=== PATIENT | female | born 1975 | race Caucasian/White ===

== ENCOUNTER 2016-11-21 19:09 | Inpatient (IN) | payer BC ==
[2016-11-21] MEDS ORDERED: SODIUM CHLORIDE 0.9% 1,000 ML IV ONE (19:51)
[2016-11-21] MEDS ORDERED: HYDROmorphone 1 MG/ML 1 ML SYRINGE IVP STA ×2 (19:51→20:27)
[2016-11-21] MEDS ORDERED: ONDANSETRON 4 MG/2 ML VIAL IVP STA ×2 (19:51→21:29)
--- NOTE | 2016-11-21 20:03 | ED ---
Fall HPI - General Source: patient Mode of arrival: wheelchair <Bryan He - Last Filed: 11/21/16 21:43> <Kris Kang - Last Filed: 11/22/16 01:06> - General Chief Complaint: Fall Stated Complaint: fell off a horse Time Seen by Provider: 11/21/16 19:46 - History of Present Illness Initial Comments: This 41-year-old white female presents with a complaint of falling from a horse. She states that the horse was standing still and she was reading a book. The wind caught pages of the book and they flapped and this spook spooked the horse.she apparently landed on a hard piece of wendy on her upper back or neck region. She states that she immediately developed some numbness and burning type pain to her bilateral upper extremities. She may have hit her head as well. She did not lose any consciousness. She states that the pain in her arms is severe in nature and worse with any movement or light touch. This occurred at 6 PM tonight. She denies any other injuries or complaints or modifying factors. She denies any previous medical problems other than ADHD and only takes Adderall. She denies any alcohol or drugs. (Bryan He) - Related Data Home Medications Medication Instructions Recorded Confirmed Dextroamphetamine/Amphetamine 20 mg PO QAM 11/21/16 11/21/16 [Adderall Xr] Ergocalciferol [Vitamin D2] 50,000 unit PO Q30D 11/21/16 11/21/16 L.acidoph,Paracasei, B.lactis 2 cap PO HS 11/21/16 11/21/16 [Probiotic] Multivitamins, Thera [Multivitamin 1 tab PO DAILY 11/21/16 11/21/16 (formulary)] Allergies Allergy/AdvReac Type Severity Reaction Status Date / Time No Known Allergies Allergy Verified 11/21/16 21:02 Review of Systems ROS Other: All systems not noted in ROS Statement are negative. <Bryan He - Last Filed: 11/21/16 21:43> ROS Other: All systems not noted in ROS Statement are negative. <Kris Kang - Last Filed: 11/22/16 01:06> ROS Statement: Those systems with pertinent positive or pertinent negative responses have been documented in the HPI. Past Medical History Past Medical History: No Reported History History of Any Multi-Drug Resistant Organisms: None Reported Past Surgical History: No Surgical Hx Reported Past Psychological History: ADD/ADHD Smoking Status: Never smoker Past Alcohol Use History: None Reported Past Drug Use History: None Reported <Bryan He - Last Filed: 11/21/16 21:43> General Exam Limitations: no limitations <Bryan He - Last Filed: 11/21/16 21:43> <Kris Kang - Last Filed: 11/22/16 01:06> - General Exam Comments Initial Comments: GENERAL: The patient is well nourished and well hydrated. VITAL SIGNS: Heart rate, blood pressure, respiratory rate reviewed as recorded in nurse's notes. EYES: Pupils are round and reactive. Extraocular movements are intact. No conjunctival / lid redness or swelling. ENT: No external evidence of injury, swelling, or ecchymosis. Airway is patent. Throat is clear. NECK: there is mild tenderness diffusely throughout the cervical spine. No subcutaneous emphysema. Trachea is midline. No thyroid mass. HEART: Regular rate and rhythm. Good peripheral pulses. LUNGS/CHEST: Breath sounds clear and equal bilaterally. No rales, rhonchi, or wheezes. No ecchymosis, subcutaneous emphysema, or tenderness. ABDOMEN: Abdomen soft without tenderness. No palpable masses or organomegaly. No peritoneal signs. No abdominal wall swelling or ecchymosis. EXTREMITIES: There is extreme tenderness upon any palpation or light touch to bilateral upper extremities. There is no tenderness to the lower extremities. Muscle tone and function is difficult to assess to the upper extremities due to the degree of pain she is in. She is unwilling to let me touch her arms or move her arms. there is tenderness noted to the bilateral parathoracic musculature and slightly over the upper vertebral spinal processes. NEUROLOGIC: Sensation is grossly intact. Cranial nerve exam reveals face is symmetrical, tongue is midline, speech is clear. SKIN: No abrasions or ecchymosis is noted. No induration or masses noted. PSYCHIATRIC: Alert and oriented. appears to be extremely anxious. (Bryan He) Medical Decision Making - Lab Data Result diagrams: 11/21/16 20:55 11/21/16 20:55 <Bryan He - Last Filed: 11/21/16 21:43> - Lab Data Result diagrams: 11/21/16 20:55 11/21/16 20:55 <Kris Kang - Last Filed: 11/22/16 01:06> - Medical Decision Making the patient is seen and examined. All diagnostics are reviewed. An IV is started and she receives Dilaudid and Zofran intravenously.She has continued pain and receives another milligram of Dilaudid IV. She has increased nausea and receives additional Zofran. A computed tomography scan of the brain and an cervical spine is done does not show any acute process. Computed tomography scan of the thoracic spine shows a compression fracture of T11 but is felt to be old per radiology. The patient does not have any tenderness in that area but also denies any previously known old back injuries. (Bryan He) - Lab Data Lab Results 11/21/16 11/21/16 11/21/16 Range/Units 20:55 20:55 20:55 WBC 10.0 (3.8-10.6) k/uL RBC 4.53 (3.80-5.40) m/uL Hgb 14.2 (11.4-16.0) gm/dL Hct 41.0 (34.0-46.0) % MCV 90.4 (80.0-100.0) fL MCH 31.4 (25.0-35.0) pg MCHC 34.7 (31.0-37.0) g/dL RDW 12.3 (11.5-15.5) % Plt Count 284 (150-450) k/uL Neutrophils % 74 % Lymphocytes % 17 % Monocytes % 5 % Eosinophils % 1 % Basophils % 1 % Neutrophils # 7.4 (1.3-7.7) k/uL Lymphocytes # 1.7 (1.0-4.8) k/uL Monocytes # 0.5 (0-1.0) k/uL Eosinophils # 0.1 (0-0.7) k/uL Basophils # 0.1 (0-0.2) k/uL PT 10.4 (9.0-12.0) sec INR 1.0 (<1.1) APTT 23.3 (22.0-30.0) sec Sodium 135 L (137-145) mmol/L Potassium 4.0 (3.5-5.1) mmol/L Chloride 108 H (98-107) mmol/L Carbon Dioxide 20 L (22-30) mmol/L Anion Gap 7 mmol/L BUN 13 (7-17) mg/dL Creatinine 0.68 (0.52-1.04) mg/dL Est GFR (MDRD) Af Amer >60 (>60 ml/min/1.73 sqM) Est GFR (MDRD) Non-Af >60 (>60 ml/min/1.73 sqM) Glucose 125 H (74-99) mg/dL Calcium 9.3 (8.4-10.2) mg/dL Disposition <Bryan He - Last Filed: 11/21/16 21:43> <Kris Kang - Last Filed: 11/22/16 01:06> Clinical Impression: Fall, Cervical radicular pain Disposition: ADMITTED IP TO THIS HOSP Condition: Fair Instructions: Thoracic Back Strain (ED), Cervical Radiculopathy (ED) Referrals: Brenna Silva MD [Primary Care Provider] - 1-2 days
[2016-11-21] MEDS ORDERED: hydrALAZINE HCL 20 MG/ML 1 ML VIAL IVP STA (20:27)
--- NOTE | 2016-11-21 21:03 | CT ---
EXAMINATION TYPE: CT brain odessa wo con DATE OF EXAM: 11/21/2016 COMPARISON: NONE HISTORY: Fall from horse today. Neck pain and bilateral arm tingling and pain. CT DLP: 3462.00 mGycm Automated exposure control for dose reduction was used. TECHNIQUE: CT scan of the head and cervical spine are performed without contrast. FINDINGS: The ventricles and sulci appear normal. There is no mass effect nor midline shift. There is no sign of intracranial hemorrhage. The calvarium appears intact. The cervical vertebra have normal alignment. There is mild spondylosis in the mid cervical spine. Fac et joints are intact. The skull base is intact. There is no sign of a fracture. IMPRESSION: Negative CT scan of the brain. Mild degenerative disc changes in the cervical spine. No fracture.
[2016-11-21 21:08] LABS: Basophils # (A) 0.1 k/uL (0-0.2); Basophils % (A) 1 %; CH 31.6; CHCM 35.1; Eosinophils # (A) 0.1 k/uL (0-0.7); Eosinophils % (A) 1 %; HDW 2.36; HGB 14.2 gm/dL (11.4-16.0); Luc # (Auto) 0.32; Luc % (Auto) 3; Lymphocytes # (A) 1.7 k/uL (1.0-4.8); Lymphocytes % (A) 17 %; MCH 31.4 pg (25.0-35.0); MCHC 34.7 g/dL (31.0-37.0); MCV 90.4 fL (80.0-100.0); Mean Platelet Volume 7.1; Monocytes # (A) 0.5 k/uL (0-1.0); Monocytes % (A) 5 %; Neutrophils # (A) 7.4 k/uL (1.3-7.7); Neutrophils % (A) 74 %; RBC 4.53 m/uL (3.80-5.40); RDW 12.3 % (11.5-15.5); WBC (Perox) 10.46
[2016-11-21 21:15] LABS: Anion Gap 7 mmol/L; Blood Urea Nitrogen 13 mg/dL (7-17); Calcium 9.3 mg/dL (8.4-10.2); Carbon Dioxide 20 mmol/L (22-30); Chloride 108 mmol/L (98-107); Glucose 125 mg/dL (74-99); Non-African American GFR(MDRD) >60 (>60 ml/min/1.73 sqM); Sodium 135 mmol/L (137-145)
--- NOTE | 2016-11-21 21:16 | CT ---
EXAMINATION TYPE: CT thoracic spine wo con DATE OF EXAM: 11/21/2016 COMPARISON: NONE HISTORY: Fall from horse today. Neck pain and bilateral arm tingling and pain. CT DLP: 3462.00 mGycm Automated exposure control for dose reduction was used. FINDINGS: The thoracic vertebra have fairly normal spacing and alignment. There is slight anterior wedging of T 11 that is probably old and is less than 10%. There is no thoracic paraspinal mass. The posterior sherley ments are intact. I see no focal bone destruction. IMPRESSION: THERE IS VERY MINIMAL WEDGING OF T11 VERTEBRA THAT IS PROBABLY DUE TO OLD INJURY. NO ACUTE FRACTURE S EEN. MILD SPONDYLOTIC CHANGES.
[2016-11-21 21:25] LABS: Partial Thromboplastin Time 23.3 sec (22.0-30.0); Prothrombin Time 10.4 sec (9.0-12.0)
--- NOTE | 2016-11-21 21:53 | XR ---
EXAMINATION TYPE: XR chest 2V DATE OF EXAM: 11/21/2016 COMPARISON: NONE HISTORY: Fell off a horse. Chest pain. TECHNIQUE: Frontal and lateral views of the chest are obtained. FINDINGS: Heart and mediastinum appear normal. Lungs are clear. There is no sign of pleural effusion or pneumothorax. Bony thorax appears intact. There is no sign of a rib fracture. IMPRESSION: Normal chest
--- NOTE | 2016-11-21 21:54 | XR ---
EXAMINATION TYPE: XR pelvis AP view DATE OF EXAM: 11/21/2016 COMPARISON: NONE HISTORY: Pain. Fell off a horse. TECHNIQUE: Single view FINDINGS: Pelvic ring appears intact. Proximal femurs and hip joints appear normal. IUD is noted. Sac roiliac joints are normal. IMPRESSION: Normal pelvis
[2016-11-22] MEDS ORDERED: HYDROmorphone 1 MG/ML 1 ML SYRINGE IVP STA
[2016-11-22] MEDS ORDERED: ACETAMINOPHEN TAB 325 MG TAB PO PRN (01:06)
[2016-11-22] MEDS ORDERED: NALOXONE 0.4 MG/ML 1 ML VIAL IV PRN (01:06)
[2016-11-22] MEDS ORDERED: HYDROmorphone 1 MG/ML 1 ML SYRINGE IV PRN (01:06)
[2016-11-22] MEDS: SODIUM CHLORIDE 0.9% 1,000 ML IV SCH (02:06)
[2016-11-22 02:13] VITALS: BMI 25.4
[2016-11-22 08:03] VITALS: RESP 16
[2016-11-22] MEDS ORDERED: ONDANSETRON 4 MG/2 ML VIAL IVP PRN (08:11)
[2016-11-22] MEDS ORDERED: DIAZEPAM 5 MG TAB PO STA ×3 (09:14→17:22)
[2016-11-22] MEDS ORDERED: DEXAMETHASONE SOD PHOSPHATE 10 MG/ML 1 ML VIAL IV STA (09:37)
[2016-11-22] MEDS ORDERED: DEXAMETHASONE SOD PHOSPHATE 4 MG/ML 1 ML VIAL IV PRN (09:37)
[2016-11-22] MEDS: FAMOTIDINE 20 MG TAB PO SCH ×2 (09:40→22:25)
[2016-11-22] MEDS ORDERED: methylPREDNISolone SOD SUCCI 125 MG/2 ML VIAL IV SCH ×2 (09:45→16:00)
[2016-11-22] MEDS: INSULIN LISPRO (humaLOG) 300 UNIT/3 ML VIAL SQ SCH ×3 (11:31→22:25)
[2016-11-22 11:37] LABS: Glucose,Whole Blood 153 mg/dL (75-99)
--- NOTE | 2016-11-22 12:57 | P.HPOR ---
History of Present Illness H&P Date: 11/22/16 Chief Complaint: Bilateral upper extremity pain; status post fall from horse Patient is a very pleasant 41-year-old female who is seen and examined at the bedside for further evaluation after being thrown from a horse yesterday, 2016. She states she was reading a book when the wind caught the pages and scared the horse at which time the horse knocked her off onto the ground. She denies loss of consciousness. Since the time of the accident, she's been experiencing significant bilateral upper extremity pain. She states she has pain that radiates from the shoulders all the way down to the hands. The pain is most significant below the elbows bilaterally. She denies any cervical pain , thoracic pain, low back pain, or lower extremity pain. She states she has had previous injury to her spine multiple times from other accidents. She's been urinating without difficulty. She has had significant nausea since being admitted to the hospital and has vomited a few times. She has not had much of an appetite. CT scans were performed in the emergency department of the cervical spine, brain, and thoracic spine. She's currently waiting for further evaluation by neurology. MRI scans of the cervical spine and thoracic spine have also been ordered. She denies specific weakness in the bilateral upper extremities but states she has significant exacerbated pain in the bilateral upper extremities throughout active range of motion. Past Medical History Past Medical History: No Reported History History of Any Multi-Drug Resistant Organisms: None Reported Past Surgical History: No Surgical Hx Reported Past Psychological History: ADD/ADHD Smoking Status: Former smoker Past Alcohol Use History: None Reported Past Drug Use History: None Reported - Past Family History Mother Family Medical History: No Reported History Father Additional Family Medical History / Comment(s): collitis Medications and Allergies Home Medications Medication Instructions Recorded Confirmed Type Dextroamphetamine/Amphetamine 20 mg PO QAM 11/21/16 11/21/16 History [Adderall Xr] Ergocalciferol [Vitamin D2] 50,000 unit PO Q30D 11/21/16 11/21/16 History L.acidoph,Paracasei, B.lactis 2 cap PO HS 11/21/16 11/21/16 History [Probiotic] Multivitamins, Thera [Multivitamin 1 tab PO DAILY 11/21/16 11/21/16 History (formulary)] Allergies Allergy/AdvReac Type Severity Reaction Status Date / Time No Known Allergies Allergy Verified 11/21/16 21:02 Physical Examination Physical exam: Patient is awake, alert, and oriented 3. Vital signs stable. Good chest excursion with deep inspiration and expiration. Abdomen soft, nontender. No significant pain with palpation of the posterior cervical spine or thoracic spine. Full, active, and adequate range of motion of the cervical spine Evidence of a small red ronald of the mid thoracic spine and right lateral thoracic spine that may be due to fall No evidence of significant bruising, laceration, or obvious blunt trauma to the cervical spine or thoracic spine No obvious sign of infection. Able to perform active range of motion of the bilateral upper extremities, but doing so causes significant upper extremity pain bilaterally. Negative Salazar's Sign bilaterally Neurovascularly intact bilateral upper extremities Active full range of motion of the bilateral lower extremities without difficulty Results Pertinent studies: CT scan of the brain and cervical spine: Negative CT scan of the brain; mild degenerative changes of the cervical spine without evidence of acute fracture CT of the thoracic spine: T11 superior endplate compression deformity of with less than 10% height loss that appears to be chronic in nature; mild spondylitic change X-ray of the pelvis: Normal pelvis; no evidence of fracture, dislocation - Labs Labs: Abnormal Lab Results - Last 24 Hours (Table) 11/21/16 11/22/16 Range/Units 20:55 11:25 Sodium 135 L (137-145) mmol/L Chloride 108 H (98-107) mmol/L Carbon Dioxide 20 L (22-30) mmol/L Glucose 125 H (74-99) mg/dL POC Glucose (mg/dL) 153 H (75-99) mg/dL H & H 11/21/16 Range/Units 20:55 Hgb 14.2 (11.4-16.0) gm/dL Hct 41.0 (34.0-46.0) % Coagulation 11/21/16 Range/Units 20:55 INR 1.0 (<1.1) Result Diagrams: 11/21/16 20:55 11/21/16 20:55 Assessment and Plan (1) Cervical radicular pain Status: Acute (2) Fall Status: Acute Plan: Assessment: Bilateral upper extremity cervical radiculopathy. Status post-fall from horse Plan: 1. Orders have been placed for an MRI of the cervical spine and MRI of the thoracic spine. Valium 5 mg will be given to the patient prior to her MRIs. We 'll plan to follow-up with an appropriate plan of care following the MRI results. We will also plan to start her on Solu-Medrol 60 mg IV every 8 hours. Continue pain control. We'll plan to increase Zofran to 4 mg every 6 hours as needed for nausea and vomiting. 2. Patient currently waiting for further evaluation by Dr. Sheth in neurology. 3. We will continue to follow patient closely. 4. Patient has been discussed in detail with Dr. Jac Avendano and he agrees with this plan Time with Patient: Less than 30
[2016-11-22] MEDS: ONDANSETRON 4 MG/2 ML VIAL IVP PRN ×2 (13:01→17:33)
[2016-11-22 13:33] LABS: Hemoglobin A1C 5.5 % (4.2-6.1)
--- NOTE | 2016-11-22 15:48 | MR ---
EXAMINATION TYPE: MR cspine/tspine wo con DATE OF EXAM: 11/22/2016 COMPARISON: CT cervical and thoracic spine from yesterday HISTORY: Fell off of a horse, Neck pain, dontrell arm pain and skin sensitivity, nausea TECHNIQUE: Multiplanar, multisequence imaging of the cervical and thoracic spine are performed withou t contrast FINDINGS: C-SPINE: FINDINGS: Sagittal images of the cervical spine show the craniocervical junction to appear within nor mal limits. The cervical and upper thoracic spinal cord is normal in course and caliber. There is sl ight levoconvex scoliotic curvature centered in the upper thoracic spine redemonstrated. The vertebr al body heights are normal. There is mild to moderate disc space narrowing C4-C5 level. Posterior d isc herniations are seen at C3-C4 and C4-C5 levels mildly effacing anterior thecal sac. Mild increase d signal in spinal cord is felt present at C4-C5 level on sagittal image 7 confirmed on axial image 3 3. The bone marrow signal intensity is within normal limits. Mild multilevel anterior spurring is pre sent. Axial images show the C2-C3 level to appear within normal limits. Axial images at C3-C4 level show broad-based right paracentral disc protrusion effacing anterior thec al sac and causing asymmetric mild right-sided neural foraminal narrowing. Left-sided neural foramen is patent. Axial images at C4-C5 level show broad-based posterior disc protrusion with some marginal spurring ca using moderate left greater than right neural foraminal narrowing. There is effacement of anterior th ecal sac with suggestion of faint increased signal in spinal cord. Axial images at C5-C6 level show broad-based right paracentral/foraminal disc protrusion effacing ant erolateral thecal sac and causing asymmetric moderate right-sided neural foraminal narrowing on axial image 27. Left-sided neural foramen is patent. Axial images at C6-C7 and C7-T1 levels are felt within normal limits. There is 6 mm T2 hyperintense nodule inferior left thyroid lobe on axial image 3 redemonstrated sligh tly more prominent in craniocaudal dimension seen better on CT. IMPRESSION: Multilevel degenerative changes in cervical spine most prominent at C3-C4 level, suggesti on of mild cord edema at this level is present, I suspect findings are most likely product of degener ative change rather than trauma given the associated degenerative findings. Other findings as noted a naren. T-SPINE: Spinal cord shows normal course and caliber as it courses the thoracic spine. Vertebral body heights and alignment are satisfactory. Disc space heights are fairly well-maintained. Posterior disc hernia tion effaces anterior thecal sac T11-T12 level on sagittal images 8 and 9. There is partial visualiza tion of disc herniation effacing anterior thecal sac at L1-L2 level on sagittal image 9. Bone marrow signal intensity is preserved. Mild multilevel anterior spurring is redemonstrated in the lower thora cic spine. Review of the axial images also shows right paracentral disc protrusion effacing anterolateral thecal sac and causing asymmetric mild right-sided neural foraminal narrowing on axial image 16 at T9-T10 l evel. Axial images at T10-T11 level show small left paracentral disc protrusion mildly effacing anterior th ecal sac on axial image 13, bilateral neural foramina are patent. Axial images at T11-T12 level confirmed left paracentral disc protrusion effacing anterolateral theca l sac and causing asymmetric mild to moderate left-sided neural foraminal narrowing on axial image 6. IMPRESSION: Some multilevel degenerative changes most prominent in lower thoracic levels as detailed above. No suspicious posttraumatic findings identified.
[2016-11-22 17:06] LABS: Glucose,Whole Blood 183 mg/dL (75-99)
[2016-11-22] MEDS: methylPREDNISolone SOD SUCCI 125 MG/2 ML VIAL IV SCH (17:31)
--- NOTE | 2016-11-22 19:07 | MR ---
EXAMINATION TYPE: MR brain wo/w con DATE OF EXAM: 11/22/2016 COMPARISON: NONE HISTORY: Fall off horse, vision changes, neck pain, cervical radic CONTRAST: Standard multiplanar, multisequence MRI departmental protocol utilizing 15 mL intravenous MultiHance gadolinium contrast. FINDINGS: Ventricles and sulci appear normal. There is no mass effect nor midline shift. There is no sign of intracranial hemorrhage. Rosas-white matter structures have normal signal pattern. There is no evidence of cerebral edema. Brainstem appears intact. Sella turcica is normal. Corpus callosum appea rs normal. Contrast images show no pathologic enhancement. IMPRESSION: Normal MRI scan of the brain. No evidence of traumatic injury.
[2016-11-22 21:28] LABS: Glucose,Whole Blood 162 mg/dL (75-99)
--- NOTE | 2016-11-22 22:23 | P.CNNES ---
History of Present Illness Consult date: 11/22/16 Requesting physician: Mercy Avendano Reason for Consult: cervical radiculopathy Chief complaint: Bilateral upper extremity pain History of Present Illness: Neurology is being requested to consult on a 41-year-old female who was brought to the ED on November 21, 2016 after being thrown from a horse. Patient denied any loss of consciousness. Patient states that when being thrown from the horse, she fell onto a large chunk of Siddharth or debris landing on her back. The debris caused hyperextension of the cervical spine and elevation of the thoracic spine with immediate loss of sensation to the bilateral upper and lower extremities. Bilateral lower extreme any sensation returned within several minutes. Bilateral upper extremity symptoms remained but diminished to the noted level on presentation. Patient's daughter was in proximity at the time of the fall and it does not appear that the patient lost consciousness. Patient does report she possibly struck her head on the ground. CT and MRI of the brain, cervical and thoracic spine were performed. Patient was placed on Decadron by Dr. Sheth prior to consult. Patient reports some improvement and decreased symptoms since steroid initiation. However, the patient states she does have extreme sensitivity to the bilateral upper extremities to touch. Patient is able to move both upper extremities but does experience increased pain with range of motion. Prior to this incident, patient had full range of motion without pain. No other history of trauma to the head or neck. At contact, the patient was supine in bed in no acute distress. Spouse is present at the bedside. Review of Systems Systems not noted in HPI previously or considered negative. Past Medical History Past Medical History: No Reported History History of Any Multi-Drug Resistant Organisms: None Reported Past Surgical History: No Surgical Hx Reported Past Psychological History: ADD/ADHD Smoking Status: Former smoker Past Alcohol Use History: None Reported Past Drug Use History: None Reported - Past Family History Mother Family Medical History: No Reported History Father Additional Family Medical History / Comment(s): collitis Medications and Allergies Home Medications Medication Instructions Recorded Confirmed Type Dextroamphetamine/Amphetamine 20 mg PO QAM 11/21/16 11/21/16 History [Adderall Xr] Ergocalciferol [Vitamin D2] 50,000 unit PO Q30D 11/21/16 11/21/16 History L.acidoph,Paracasei, B.lactis 2 cap PO HS 11/21/16 11/21/16 History [Probiotic] Multivitamins, Thera [Multivitamin 1 tab PO DAILY 11/21/16 11/21/16 History (formulary)] Allergies Allergy/AdvReac Type Severity Reaction Status Date / Time No Known Allergies Allergy Verified 11/21/16 21:02 Physical Examination - Vital Signs Vital Signs: Vital Signs Temp Pulse Pulse Resp BP BP Pulse Ox 11/22/16 15:00 97.7 F 77 16 148/79 97 11/22/16 07:00 96.3 F L 63 16 133/69 99 11/22/16 02:03 96.8 F L 65 18 179/85 100 11/22/16 01:45 98.0 F 69 18 164/74 97 11/21/16 23:58 66 18 146/72 98 11/21/16 22:01 68 18 154/67 98 Intake and Output 11/22/16 11/22/16 11/22/16 06:59 14:59 22:59 Other: # Voids 1 2 Weight 71.5 kg Constitutional: AOx3, cooperative HEENT: NC/AT, no facial asymmetry is seen. Throat: Supple, no masses Respiratory: No increased work of breathing Cardiac: Regular rate and Rhythm GI: non tender, non distended Musculoskeletal: Storage Battery Charger strengths are equal bilaterally 3-4/5, Lower extremity strengths are equal bilaterally at 5/5. Patient had noted left trapezius pain and tenderness to touch and palpation. Patient also had myofascial pain and tenderness to touch and palpation in the bilateral scapular areas. Patient also had noted cervical paraspinal stiffness and increased pain with lateral rotation as well as extension. Increased pain with flexion was primarily myofascial and described as tugging. Patient was negative Spurling's. Neurological: CN II-XII in tact, patient was AOx3, speech and language are normal, no unilateralizing weakness, no seizure activity note on physical exam. Patient was hypersensitive to light touch in the bilateral upper extremities. Bilateral lower extremities were normal to touch. Integementary: no rash, no erythema Psychiatric: mood and affect appropriate Results - Laboratory Findings CBC and BMP: 11/21/16 20:55 11/21/16 20:55 Abnormal Lab Findings: Abnormal Labs 11/21/16 11/22/16 11/22/16 20:55 11:25 17:00 Sodium 135 L Chloride 108 H Carbon Dioxide 20 L Glucose 125 H POC Glucose (mg/dL) 153 H 183 H 11/22/16 21:21 Sodium Chloride Carbon Dioxide Glucose POC Glucose (mg/dL) 162 H Assessment and Plan (1) Edema of spinal cord Status: Acute (2) Cervical radicular pain Status: Acute (3) Fall Status: Acute (4) Vision changes Status: Acute Plan: 1. Spinal cord edema 2. Cervical radicular pain 3. Fall 4. Vision changes On exam, the patient does have pain that is consistent with a C4-C6 dermatomes in the upper extremities. Patient also has myofascial pain in the cervical paraspinal muscles, left trapezius and bilateral scapular muscle groups. Patient's MRI of the cervical spine noted multilevel degenerative changes in the cervical spine most prominent at C3-4 with possible mild cord edema at that level. Findings noted it was most likely due to product of degenerative changes rather than trauma. Further notations included at C4-5 broad-based posterior disc protrusion with spurring causing moderate left greater than right neural foraminal narrowing. Effacement of anterior thecal sac with suggestion of faint increased signal in the spinal cord. C5-6 showed broad- based right paracentral/foraminal disc protrusion effacing anterolateral thecal sac and causing asymmetric moderate right-sided neural foraminal narrowing. Left-sided neural foramen is patent. See MR report for further notations. Incidental finding on cervical MRI noted a 6 mm T2 hyperintense nodule inferior left thyroid lobe on image #3 slightly more prominent in craniocaudal dimension seen better on CT. Thyroid panel was ordered. It is noteworthy that the patient 's sibling has Ginger's. Patient is responding well to IV steroids With noted decreased pain and sensitivity. Currently patient is being administered Solu-Medrol 125 mg every 8 hours. Continue IV steroid administration, neuro checks. Visual changes are present on physical exam and reproducible with right-handed finger to nose testing which induced diplopia and blurry vision. Nausea was also increased. MRI of the brain was ordered which noted no acute process. Continue to monitor. Neurology will continue to follow provide an update as needed or warranted. Notify neurology if any changes in neurological status. Please contact our office with any questions.
[2016-11-23] MEDS: methylPREDNISolone SOD SUCCI 125 MG/2 ML VIAL IV SCH ×4 (00:09→23:28)
[2016-11-23] MEDS: SODIUM CHLORIDE 0.9% 1,000 ML IV SCH (04:20)
[2016-11-23 07:28] LABS: Glucose,Whole Blood 112 mg/dL (75-99)
--- NOTE | 2016-11-23 08:09 | P.HPOR ---
History of Present Illness H&P Date: 11/23/16 Chief Complaint: Bilateral upper extremity pain status post fall Patient is seen and examined today at bedside. She is a very pleasant 41-year- old female who had a fall off of her horse 2 nights ago and presented to the emergency room. Her primary complaint being that of bilateral upper extremity pain. She was seen yesterday with our physician bakery assistant case was discussed. Images aswell. I'm in agreement with the H&P was performed with Fabian Christiansen. Please refer to that for further details. The patient's primary pain is in her bilateral upper extremities particularly in her forearms and wrists. She is able to move her hand and wrist fingers elbows and shoulders and neck. She is not having pain at her neck specifically. She denies any prior problems at her upper extremities like this before. She feels her left is slightly worse than the right. She feels that she is doing somewhat better today with the administration of steroid and she was yesterday. She was having some nausea and vomiting yesterday morning but this seems to have resolved. She feels it was due to medications. She denies any changes in her lower extremity's. She denies any chest pain shortness breath. She denies any abdominal pain. She denies any bowel or bladder changes. She denies any current current vision changes. Review of Systems As stated in HPI. She initially had some nausea and vomiting yesterday morning which is resolved. She initially had some vision changes which has resolved. She initially had what she reports as inability to move her arms and legs immediately when she fell off a horse. That quickly resolved and it had residual effects with pain in her arms. Past Medical History Past Medical History: No Reported History History of Any Multi-Drug Resistant Organisms: None Reported Past Surgical History: No Surgical Hx Reported Past Psychological History: ADD/ADHD Smoking Status: Former smoker Past Alcohol Use History: None Reported Past Drug Use History: None Reported - Past Family History Mother Family Medical History: No Reported History Father Additional Family Medical History / Comment(s): collitis Medications and Allergies Home Medications Medication Instructions Recorded Confirmed Type Dextroamphetamine/Amphetamine 20 mg PO QAM 11/21/16 11/21/16 History [Adderall Xr] Ergocalciferol [Vitamin D2] 50,000 unit PO Q30D 11/21/16 11/21/16 History L.acidoph,Paracasei, B.lactis 2 cap PO HS 11/21/16 11/21/16 History [Probiotic] Multivitamins, Thera [Multivitamin 1 tab PO DAILY 11/21/16 11/21/16 History (formulary)] Allergies Allergy/AdvReac Type Severity Reaction Status Date / Time No Known Allergies Allergy Verified 11/21/16 21:02 Physical Examination Osteopathic Statement: *. No significant issues noted on an osteopathic structural exam other than those noted in the History and Physical/Consult. - C Spine: dermatomal strength & reflexes bilateral Shoulder strength: flexion: 5/5 (At her neck she has full active and passive range of motion. She is nontender over the midline. She has some left paravertebral spasm and tenderness over left trapezium. Her upper extremities she has no Spurling sign. She has good motion in her shoulders wrist hands and fingers though it is somewhat slow. She has significant tenderness to light palpation over her forearms and wrists. She is able to make a fist she does have good strength with wrist flexion and extension and thumb extension. She has good strength at her biceps and triceps. She has good strength in her shoulders. She does have somewhat prescribed reflexes at 2+ out of 4, she does have a positive Salazar sign on the left. She has no clonus at her upper or lower extremities. She has negative Spurling sign. Her pupils are equal and reactive. She has no focal deficits or on her face or cranial nerves.) Results - Labs Labs: Abnormal Lab Results - Last 24 Hours (Table) 11/22/16 11/22/16 11/22/16 Range/Units 11:25 17:00 21:21 POC Glucose (mg/dL) 153 H 183 H 162 H (75-99) mg/dL 11/23/16 Range/Units 07:19 POC Glucose (mg/dL) 112 H (75-99) mg/dL H & H 11/21/16 Range/Units 20:55 Hgb 14.2 (11.4-16.0) gm/dL Hct 41.0 (34.0-46.0) % Coagulation 11/21/16 Range/Units 20:55 INR 1.0 (<1.1) Result Diagrams: 11/21/16 20:55 06/05/17 20:55 - Diagnostic results Cervical MRI with contrast: report reviewed (The MRI of her cervical spine is reviewed she does have disc protrusion with some central stenosis at C4 5. I do not see any obvious cord edema at the present. I do not see focal disc herniation but there is some central and bilateral foraminal stenosis C4 5), image reviewed Assessment and Plan Plan: Possible central cord syndrome acute status post fall Status post fall from horse Bilateral upper extremity radiculopathy and possible myeloradiculopathy Bilateral upper extremity pain The patient had a significant injury with her fall from horse. She has some central stenosis at her cervical spine at C4 5 and may have central cord syndrome. Her symptoms are primarily at her upper extremities. She is not having specific weakness or motor deficits but she does have significant pain over C45 and 6 dermatomes. She is exhibiting some upper motor neuron signs with her slight hyperreflexia and positive Salazar's on the left. I do not know her baseline for this but this is present currently. She is having some response to the IV steroid medication and I think this is a positive indicator for her. She has been able to mobilize and her nausea and vomiting and vision issues have all resolved. I like to see how she does with continued IV steroid for another 24 hours before attempting to convert her over to orals. I would also like to see if she has some improvement with taking Neurontin to alleviate some of the nerve pain that she is experiencing. We will start her on Neurontin 100 mg twice a day. I appreciate neurology input. At this point I do not have plans for acute surgical intervention for her. She is making some response to conservative treatment and we will continue with conservative treatment for now. If she develops focal deficits are worsening of her neurologic status that we would have to consider the possibility of decompression with possible fusion particular at C4 5. I discussed this with her and she understands. I answered her questions best my ability healing which she can understand and she is agreeable we will continue to follow her closely.
[2016-11-23] MEDS: FAMOTIDINE 20 MG TAB PO SCH ×2 (08:57→20:29)
[2016-11-23] MEDS: INSULIN LISPRO (humaLOG) 300 UNIT/3 ML VIAL SQ SCH ×4 (08:58→22:07)
[2016-11-23] MEDS: GABAPENTIN 100 MG CAP PO SCH ×2 (09:08→20:29)
[2016-11-23 12:02] LABS: Glucose,Whole Blood 126 mg/dL (75-99)
--- NOTE | 2016-11-23 15:37 | XR ---
EXAMINATION TYPE: XR forearm LT DATE OF EXAM ORDERED: 11/23/2016 HISTORY: left wrist pain . COMPARISON: None. FINDINGS: No fracture, dislocation or other acute osseous lesion is seen. IMPRESSION: NORMAL LEFT RADIUS AND ULNA.
--- NOTE | 2016-11-23 15:38 | XR ---
EXAMINATION TYPE: XR wrist complete LT DATE OF EXAM ORDERED: 11/23/2016 HISTORY: left wrist pain . COMPARISON: None. FINDINGS: No fracture, dislocation or other acute osseous lesion is seen. IMPRESSION: NORMAL LEFT WRIST.
[2016-11-23 17:17] LABS: Glucose,Whole Blood 150 mg/dL (75-99)
[2016-11-23 21:37] LABS: Glucose,Whole Blood 174 mg/dL (75-99)
--- NOTE | 2016-11-23 22:29 | P.PN ---
Subjective Principal diagnosis: Cervical radiculopathy, spinal cord edema Neurology is continuing to follow 41-year-old female who is brought to the ED after being thrown from a horse. Patient denied any loss of consciousness. Patient stated that when being thrown from the horse, she fell onto a large truncal [place] debris landing on her back. The debris caused hyperextension of the cervical spine and elevation of the thoracic spine with immediate loss of sensation to bilateral upper and lower extremities. Bilateral lower extremity sensation returned within several minutes. Bilateral upper extremity symptoms remain but diminished to the noted level on presentation. Patient's daughter was in proximity at the time of the fall and it does not appear that the patient lost consciousness. Patient does report that she possibly struck her head on the ground. CT and MRI of the brain, cervical and thoracic spine were performed. CT and MRI of the brain were negative for any new or acute changes. The MRI cervical spine noted mild cord edema with radicular and discogenic changes. Patient was placed on Decadron by Dr. Sheth prior to consult yesterday.On contact yesterday the patient did report some improvement since receiving IV steroid. However, the patient did have extreme sensitivity in the bilateral upper extremities to touch. Patient was able to move both upper extremities but did experience increased pain with range of motion in most planes. Prior to the incident the patient had full range of motion without pain. Patient denies any other history of trauma to the head or neck. On contact today, patient was supine in bed, Alert and oriented 3, eating and in no acute distress. Patient reports continued improvement and an approximate 60% returned to baseline. Current unresolved complaints include increased sensation from the mid radial and ulna distally bilaterally. Patient also states that her diplopia and nausea as significantly decreased. Orthopedics has seen the patient today and noted also that the patient had been making improvement with the use of IV steroid. Orthopedics was requesting an additional 24 hours of IV steroid before any further discussion regarding intervention. Objective - Vital Signs Vital signs: Vital Signs Temp 98.7 F 11/23/16 15:00 Pulse 77 11/23/16 15:00 Resp 16 11/23/16 15:00 BP 137/73 11/23/16 15:00 Pulse Ox 99 11/23/16 15:00 Intake & Output 11/23/16 11/23/16 11/24/16 06:59 18:59 06:59 Intake Total 440 Balance 440 Intake: Oral 440 Other: # Voids 1 2 - Exam Constitutional: AOx3, cooperative HEENT: NC/AT, no facial asymmetry is seen. Throat: Supple, no masses Respiratory: No increased work of breathing Cardiac: Regular rate and Rhythm GI: non tender, non distended Musculoskeletal: Manager Program Management strengths are equal bilaterally 4/5, Lower extremity strengths are equal bilaterally at 4/5. Neurological: CN II-XII in tact, patient was AOx3, speech and language are normal, no unilateralizing weakness, no seizure activity note on physical exam. Sensation On physical exam was noted to be hypersensitive from the mid radius and ulna distally. Integementary: no rash, no erythema Psychiatric: mood and affect appropriate - Labs CBC & Chem 7: 11/21/16 20:55 11/21/16 20:55 Labs: Abnormal Lab Results - Last 24 Hours (Table) 11/23/16 11/23/16 11/23/16 Range/Units 07:19 11:50 16:59 POC Glucose (mg/dL) 112 H 126 H 150 H (75-99) mg/dL 11/23/16 Range/Units 21:28 POC Glucose (mg/dL) 174 H (75-99) mg/dL Assessment and Plan (1) Edema of spinal cord Status: Acute (2) Cervical radicular pain Status: Acute (3) Fall Status: Acute (4) Vision changes Status: Acute Plan: 1. Spinal cord edema 2. Cervical radicular pain 3. Fall 4. Vision changes 5. Left radius, ulna and wrist pain On exam, the patient does have pain that is consistent with a C4-C6 dermatomes in the upper extremities. Patient also has myofascial pain in the cervical paraspinal muscles, left trapezius and bilateral scapular muscle groups which appears to be improving with the IV steroid, continue IV steroid at existing dose and frequency for additional 24 hours until reassessed by orthopedics and neurology. Patient's MRI of the cervical spine noted multilevel degenerative changes in the cervical spine most prominent at C3-4 with possible mild cord edema at that level. Findings noted it was most likely due to product of degenerative changes rather than trauma. Further notations included at C4-5 broad-based posterior disc protrusion with spurring causing moderate left greater than right neural foraminal narrowing. Effacement of anterior thecal sac with suggestion of faint increased signal in the spinal cord. C5-6 showed broad- based right paracentral/foraminal disc protrusion effacing anterolateral thecal sac and causing asymmetric moderate right-sided neural foraminal narrowing. Left-sided neural foramen is patent. See MR report for further notations. Incidental finding on cervical MRI noted a 6 mm T2 hyperintense nodule inferior left thyroid lobe on image #3 slightly more prominent in craniocaudal dimension seen better on CT. Thyroid panel was ordered. It is noteworthy that the patient 's sibling has Ginger's. Visual changes are present on physical exam and reproducible with right-handed finger to nose testing which induced diplopia and blurry vision. Nausea was also increased. MRI of the brain was ordered which noted no acute process. Today, the patient reports no diplopia or blurry vision with right-handed finger to nose. Resolved. On exam, the patient did have tenderness to touch and palpation over the distal radius and ulna adjacent to the wrist. X-ray of the forearm and wrist on the left was requested. X-rays were negative for any fracture or acute changes. No further follow-up is needed or warranted at this time. If pain persists, defer management and treatment options to orthopedics. Overall the patient does appear to be improving. Neurology will continue to follow and provide an update as needed or warranted. Notify neurology if any changes in neurological status. Please contact our office with any questions.
[2016-11-24] MEDS: SODIUM CHLORIDE 0.9% 1,000 ML IV SCH (02:05)
[2016-11-24 07:50] LABS: Glucose,Whole Blood 129 mg/dL (75-99)
[2016-11-24] MEDS: INSULIN LISPRO (humaLOG) 300 UNIT/3 ML VIAL SQ SCH ×2 (07:57→11:23)
[2016-11-24] MEDS: GABAPENTIN 100 MG CAP PO SCH (08:17)
[2016-11-24] MEDS: FAMOTIDINE 20 MG TAB PO SCH (08:17)
[2016-11-24] MEDS: methylPREDNISolone SOD SUCCI 125 MG/2 ML VIAL IV SCH (08:17)
[2016-11-24 08:34] VITALS: BP 150/74; PULSE 71; TEMP 97.8
== END 2016-11-24 12:18 | disposition home or self-care (01) | DRG 73 ==
LOC: EC 19:09 → 4MS4W 11-22 01:06
PROVIDERS: ADMIT Orthopaedic Surgery Orthopaedic Surgery of the Spine; ATTEND Orthopaedic Surgery Orthopaedic Surgery of the Spine
DX: M54.12 Radiculopathy, cervical region (principal); G95.19 Other vascular myelopathies; F90.9 Attention-deficit hyperactivity disorder, unspecified type; H53.2 Diplopia; R11.2 Nausea with vomiting, unspecified; Z87.891 Personal history of nicotine dependence; Z79.899 Other long term (current) drug therapy; V80.010A Animal-rider injured by fall from or being thrown from horse in noncollision accident, initial encounter; Y92.9 Unspecified place or not applicable; Y93.52 Activity, horseback riding
CPT/HCPCS: 36415; 70450; 70553; 71020; 72125; 72128; 72141; 72146; 72170; 80048; 83036; 84443; 85025; 85610; 85730; 96361; 96374; 96375; 96376; 99284

== ENCOUNTER 2017-01-03 09:43 | Day surgery (SDC) | payer BC ==
[2016-12-30 10:39] VITALS: BMI 23.5
[~2017-01-03 09:43] MED LIST: DEXAMETHASONE SOD PHOSPHATE 10 MG/ML 1 ML VIAL IV ONE; LACTATED RINGERS 1,000 ML IV SCH; MIDAZOLAM 2 MG/2 ML VIAL IV PRN; ceFAZolin 2 GM in SODIUM CHLORIDE 0.9% 100 ML IVPB ONE
[2017-01-03] MEDS ORDERED: LIDOCAINE 1% 20 ML VIAL (10MG/ML) FOR IV START INTRADERMA ONE (10:35)
[2017-01-03] MEDS: ONDANSETRON 4 MG/2 ML VIAL IVP ONE ×2 (10:36→15:38)
[2017-01-03] MEDS ORDERED: ROCURONIUM BROMIDE 10 MG/ML 10 ML VIAL IV ONE (12:18)
[2017-01-03] MEDS ORDERED: SUCCINYLCHOLINE CHLORIDE 100 MG/5 ML SYR IV ONE (12:18)
[2017-01-03] MEDS ORDERED: HYDROmorphone (PF) 1 MG/ML ONE (12:18)
[2017-01-03] MEDS ORDERED: MIDAZOLAM 2 MG/2 ML VIAL ONE (12:18)
[2017-01-03] MEDS ORDERED: PHENYLEPHRINE-0.9% NACL SYG 1 MG/10 ML SYRINGE ONE (12:18)
[2017-01-03] MEDS ORDERED: LIDOCAINE 1% INJ 10MG/ML (20 ML MDV) ONE (12:18)
[2017-01-03] MEDS ORDERED: ePHEDrine 50 MG/ML 1 ML AMP ONE (12:18)
[2017-01-03] MEDS ORDERED: NEOSTIGMINE 1 MG/ML 10 ML VIAL ONE (12:18)
[2017-01-03] MEDS ORDERED: PROPOFOL 10 MG/ML 20 ML VIAL IV ONE (12:18)
[2017-01-03] MEDS ORDERED: fentaNYL (PF) 50 MCG/ML 2 ML AMP ONE (12:18)
[2017-01-03] MEDS ORDERED: GLYCOPYRROLATE 0.2 MG/ML 2 ML VIAL ONE (12:18)
[2017-01-03] MEDS ORDERED: ceFAZolin 1,000 MG in SODIUM CHLORIDE 0.9% 1,000 ML IRRIGATION ONE (12:26)
[2017-01-03] MEDS ORDERED: LACTATED RINGERS 1,000 ML IV ONE (13:36)
[2017-01-03] MEDS ORDERED: BUPIVACAINE (PF) 0.25% 30 ML VIAL SQ ONE (13:43)
--- NOTE | 2017-01-03 13:51 | P.OP ---
Date of Procedure: 01/03/17 Preoperative Diagnosis: Comminuted displaced fracture right that shaft clavicle Postoperative Diagnosis: Comminuted displaced fracture right mid shaft clavicle Procedure(s) Performed: Open reduction and internal fixation of the right clavicle Implants: Accumed contured clavicle plate with locking and non-locking screws. Anesthesia: GETA Surgeon: Shreyas Colon Senior Pensions Administrator #1: Katherine Underwood Estimated Blood Loss (ml): 10 Pathology: none sent Condition: stable Disposition: PACU Indications for Procedure: This is a 41-year-old female sustained a fracture of her right clavicle last week. X-rays demonstrated a comminuted and displaced fracture midshaft clavicle. The surgical and nonsurgical treatment options were discussed with her at length, and she wishes to proceed with an open reduction and internal fixation right clavicle. She is aware of the possible complications including, but not limited to, infection, bleeding, nonunion, and the need for further surgery. Informed consent was obtained. Operative Findings: The operative findings are consistent with displaced comminuted fracture of the midshaft right clavicle. Description of Procedure: The patient was seen and evaluated in the preoperative area. The consent was reviewed and the operative site was marked with a skin marker. Patient was then brought to the operating room and given 2 g of Ancef by the anesthesia department. A general anesthetic was then administered by the anesthesia department. Patient was placed in a beachchair position and the right upper extremity was prepped and draped in the usual sterile fashion. A universal timeout was then performed which confirmed the patient's name, surgical site, ALLERGIES, and consent. The bony landmarks were then identified , and the incision site was planned out. A 4 cm transverse (medial to lateral) intraclavicular incision was made parallel to the long axis and inferior to the clavicle. Subcutaneous fat was incised together with any fibers of the platysma. The branches of the supraclavicular nerves were identified and protected throughout the procedure. The pectoralis fascia was divided in line with the incision and elevated with electrocautery to create thick flaps to be closed over the plate at the end of the procedure. There was noted to be a butterfly fragment and the soft tissue attachments were maintained. The fracture fragments were identified and reduced by using reduction forceps. Next , the appropriate-sized right superior midshaft clavicle plate was selected from the different lengths and curvatures. The plate was placed across the fracture site. Screws were then placed proximally and distally, utilizing locking and nonlocking screws for fixation. The stability of the repair was then confirmed. The wound was then irrigated with antibiotic solution next, the clavipectoral fascia was closed over the clavicle and plate followed by closure of the subcutaneous tissue and musculature in separate layers. Given was then closed with interrupted absorbable sutures with a subcuticular stitch. 20cc of 1/4 % marcaine plain was injected about the surgical site. A sterile dressing was applied, patient was placed in an arm sling. Patient was then transferred to recovery room in stable condition. The undertaker assistant YAMEL Brower was required due to the complexity of the surgery and the need for a skilled state tested nursing assistant.
[2017-01-03] MEDS ORDERED: MIDAZOLAM 2 MG/2 ML VIAL IV ONE (14:37)
[2017-01-03 14:48] VITALS: TEMP 97.4
[2017-01-03 14:58] VITALS: RESP 16
[2017-01-03] MEDS: HYDROmorphone 1 MG/ML 1 ML SYRINGE IVP PRN ×2 (15:18→15:32)
[2017-01-03 18:15] VITALS: BP 129/74; PULSE 81
== END 2017-01-03 17:52 | disposition home or self-care (01) ==
LOC: OR 09:43
PROVIDERS: ATTEND Orthopaedic Surgery
DX: S42.021A Displaced fracture of shaft of right clavicle, initial encounter for closed fracture (principal); F98.8 Other specified behavioral and emotional disorders with onset usually occurring in childhood and adolescence; Z79.891 Long term (current) use of opiate analgesic; Z79.899 Other long term (current) drug therapy; Z87.891 Personal history of nicotine dependence; V80.010A Animal-rider injured by fall from or being thrown from horse in noncollision accident, initial encounter; Y93.52 Activity, horseback riding
CPT/HCPCS: 23515; J2250; J1100; J2710; J0690 ×2; J2405; J2001; J3010; J1170; J2370; J0330; J2704; 81025

== ENCOUNTER → 2017-08-29 | Outpatient (CLI) | payer BC ==
[2017-08-29 11:34] LABS: ALT 21 U/L (9-52); AST 18 U/L (14-36); Albumin 4.2 g/dL (3.5-5.0); Alkaline Phosphatase 65 U/L (38-126); Anion Gap 7 mmol/L; Blood Urea Nitrogen 14 mg/dL (7-17); Calcium 9.5 mg/dL (8.4-10.2); Carbon Dioxide 28 mmol/L (22-30); Chloride 106 mmol/L (98-107); Glucose 99 mg/dL (74-99); Phosphorus 3.7 mg/dL (2.5-4.5); Potassium 4.7 mmol/L (3.5-5.1); Sodium 141 mmol/L (137-145); Total Bilirubin 0.4 mg/dL (0.2-1.3); Total Protein 6.4 g/dL (6.3-8.2); Uric Acid 2.4 mg/dL (3.7-7.4)
[2017-08-29 11:47] LABS: T4, Free (Free Thyroxine) 1.09 ng/dL (0.78-2.19)
[2017-08-29 16:36] LABS: Vitamin D 25 Hydroxy 22.4 ng/mL (30.0-100.0)
[2017-08-29 16:50] LABS: Folate, Serum 18.5 ng/mL; Thyroid Peroxidase Antibodies <28.0 U/mL (0.0-60.0)
[2017-08-29 17:30] LABS: ACTH 8.49 pg/mL (0.00-45.99)
[2017-08-29 17:41] LABS: Parathyroid Hormone Intact 49.3 pg/mL (14.0-72.0)
== END | disposition home or self-care (01) ==
LOC: LABWHC1 09:33
PROVIDERS: ATTEND Internal Medicine Endocrinology, Diabetes & Metabolism
DX: E03.9 Hypothyroidism, unspecified (principal); E23.2 Diabetes insipidus
CPT/HCPCS: 36415; 80053; 82024; 82306; 82533; 82607; 82670; 82746; 83001; 83002; 83970; 84100; 84305; 84432; 84439; 84443; 84550; 86376; 86800

== ENCOUNTER → 2017-09-26 | Outpatient (CLI) | payer BC ==
[2017-09-26 11:10] LABS: Anion Gap 11 mmol/L; Blood Urea Nitrogen 11 mg/dL (7-17); Calcium 9.8 mg/dL (8.4-10.2); Carbon Dioxide 24 mmol/L (22-30); Chloride 105 mmol/L (98-107); Glucose 99 mg/dL (74-99); Phosphorus 3.7 mg/dL (2.5-4.5); Potassium 4.4 mmol/L (3.5-5.1); Sodium 140 mmol/L (137-145)
[2017-09-26 11:11] LABS: ALT 20 U/L (9-52); AST 18 U/L (14-36); Albumin 4.3 g/dL (3.5-5.0); Alkaline Phosphatase 63 U/L (38-126); Magnesium 2.1 mg/dL (1.6-2.3); Total Bilirubin 0.7 mg/dL (0.2-1.3); Total Protein 6.6 g/dL (6.3-8.2)
[2017-09-26 11:20] LABS: T4, Free (Free Thyroxine) 1.39 ng/dL (0.78-2.19)
[2017-09-26 16:21] LABS: Parathyroid Hormone Intact 55.5 pg/mL (14.0-72.0)
[2017-09-26 17:20] LABS: Vitamin D 25 Hydroxy 36.3 ng/mL (30.0-100.0)
== END | disposition home or self-care (01) ==
LOC: LABWHC1 09:45
PROVIDERS: ATTEND Internal Medicine Endocrinology, Diabetes & Metabolism
DX: E85.0 Non-neuropathic heredofamilial amyloidosis (principal); E55.9 Vitamin D deficiency, unspecified
CPT/HCPCS: 36415; 80053; 82306; 82533; 83735; 83970; 84100; 84439; 84443

== ENCOUNTER → 2018-01-25 | Outpatient (CLI) | payer BC ==
[2018-01-25 09:43] LABS: Anion Gap 8 mmol/L; Blood Urea Nitrogen 16 mg/dL (7-17); Calcium 9.1 mg/dL (8.4-10.2); Carbon Dioxide 25 mmol/L (22-30); Chloride 106 mmol/L (98-107); Glucose 92 mg/dL (74-99); Potassium 4.5 mmol/L (3.5-5.1); Sodium 139 mmol/L (137-145)
[2018-01-25 09:55] LABS: T4, Free (Free Thyroxine) 1.15 ng/dL (0.78-2.19)
== END | disposition home or self-care (01) ==
LOC: LABWHC1 08:54
PROVIDERS: ATTEND Internal Medicine Endocrinology, Diabetes & Metabolism
DX: E03.9 Hypothyroidism, unspecified (principal)
CPT/HCPCS: 36415; 80048; 84439; 84443

== ENCOUNTER → 2018-05-21 | Outpatient (CLI) | payer BC ==
[2018-05-21 11:05] LABS: Parathyroid Hormone Intact 55.9 pg/mL (14.0-72.0)
[2018-05-21 12:41] LABS: Albumin 4.3 g/dL (3.80-4.90); Albumin/Globulin Ratio 2.87 (1.20-2.10); Anion Gap 6.9 mmol/L (4.00-12.00); Calcium 9.2 mg/dL (8.7-10.3); Carbon Dioxide 24.1 mmol/L (21.6-31.8); Globulin 1.5 g/dL (2.1-3.7); Magnesium 1.9 mg/dL (1.5-2.4); Phosphorus 3.6 mg/dL (2.4-5.1); Potassium 4.1 mmol/L (3.5-5.5); Total Bilirubin 0.6 mg/dL (0.3-1.2); Total Protein 5.8 g/dL (6.2-8.2)
[2018-05-21 12:47] LABS: T4, Free (Free Thyroxine) 1.1 ng/dL (0.80-1.80)
[2018-05-21 12:50] LABS: Vitamin D 25 Hydroxy 51.9 ng/mL (30.0-100.0)
== END ==
LOC: LABWHC1 07:11
PROVIDERS: ATTEND Internal Medicine Endocrinology, Diabetes & Metabolism
DX: E85.0 Non-neuropathic heredofamilial amyloidosis (principal); E55.9 Vitamin D deficiency, unspecified
CPT/HCPCS: 36415; 80053; 82306; 82533; 83735; 83970; 84100; 84439; 84443